=== PATIENT | male | born 1970 | race Caucasian/White ===

== ENCOUNTER 2016-07-03 09:39 | Emergency (ER) | payer MEDICAID ==
[2016-07-03 09:56] VITALS: BP 127/69
--- NOTE | 2016-07-03 10:40 | EDM.PDOC ---
[id number] 4d LEFT WRIST AND HAND DOES CHEMO Time Seen by Provider: 07/03/16 10:15 Source: Reports: Patient History Limitations: Reports: No limitations - History of Present Illness INITIAL COMMENTS - FREE TEXT/NARRATIVE: 46-year-old male bumped the back of his left arm and hand several days ago and now has some pain radiating from the back of his hand up his forearm and some redness and localized tenderness. No fevers or chills. He is treated for cancer but has not had an IV in the arm for over a month. Severity: mild Pain/Injury Location: Reports: upper extremity, left Associated Symptoms: Reports: other. Denies: nausea/vomiting, shortness of breath Allergies/ADRs: Allergies No Known Allergies Allergy (Verified 07/03/16 10:13) Home Medications: Ambulatory Orders carBAMazepine [Carbatrol] 300 mg PO BID 11/19/15 [Confirmed 07/03/16] Albuterol Sulfate [Proair Hfa] 8.5 gm IH ASDIRECTED PRN 04/04/16 [Confirmed ] Dexamethasone 4 mg PO DAILY 04/04/16 [Confirmed 07/03/16] Hydrocodone/Acetaminophen [[place] 5-325] 1 tab PO Q6H PRN 04/04/16 [Confirmed ] Mometasone/Formoterol [Dulera 200-5 MCG] 2 puff IH BIDRT 04/04/16 [Confirmed ] Morphine [MS Contin] 30 mg PO BID 04/04/16 [Confirmed 07/03/16] Pantoprazole [Protonix] 40 mg PO BID #30 tab.cr 04/05/16 [Confirmed 07/03/16] Sulfamethoxazole/Trimethoprim [Sulfamethoxazole-Tmp Ds Tablet] 1 tab PO BID [Confirmed 07/03/16] Past Medical History Respiratory History: Reports: Other (see below) Other Respiratory History: Lung cancer Gastrointestinal History: Reports: Other (see below) Other Gastrointestinal History: esophageal bleed Musculoskeletal History: Reports: Fracture Neurological History: Reports: Concussion, Seizure Oncologic (Cancer) History: Reports: Lung Other Oncologic History: diag-March 02 2016 - Infectious Disease History Infectious Disease History: Reports: None - Past Surgical History Respiratory Surgical History: Reports: Lung Biopsies GI Surgical History: Reports: EGD Musculoskeletal Surgical History: Reports: Arthroscopic knee Social & Family History - Tobacco Use Smoking Status *Q: Former Smoker Years of Tobacco use: 35 Packs/Tins Daily: 1 - Caffeine Use Caffeine Use: Reports: Coffee, Soda - Alcohol Use Days Per Week of Alcohol Use: 2 Number of Drinks Per Day: 15 Total Drinks Per Week: 30 - Recreational Drug Use Recreational Drug Use: No Review of Systems - Review of Systems Review Of Systems: See Below (No fevers or chills) Constitutional: Denies: fever Mouth/Throat: Denies: bleeding Respiratory: Denies: Shortness of Breath Cardiovascular: Denies: chest pain GI/Abdominal: Denies: Abdominal pain Skin: Reports: erythema Neurological: Denies: Headache Trauma Exam - Physical Exam Exam: See Below Exam Limited By: No limitations General Appearance: Reports: alert, no apparent distress Head: Reports: atraumatic Respiratory Exam: Reports: no respiratory distress Extremities: Reports: other (Patient has 2 small areas of erythema and slight swelling with tenderness to palpation on the dorsal aspect of the hand) Neurologic: Reports: no motor/sensory deficits Course - Vital Signs Last Recorded V/S: Last Vital Signs Temp 98.6 F 07/03/16 10:12 Pulse 79 07/03/16 10:12 Resp 15 07/03/16 10:12 BP 127/69 07/03/16 10:12 Pulse Ox 95 07/03/16 10:12 - Re-Assessments/Exams Free Text/Narrative Re-Assessment/Exam: 07/03/16 10:38 This patient has a localized area of superficial thrombophlebitis of the left hand. He'll be treated with anti-inflammatories, cephalexin, and can recheck next week if not improving. Departure - Departure Time of Disposition: 10:53 Disposition: Home, Self-Care 01 Condition: good Clinical Impression: Superficl phlebitis arm Instructions: Edema Referrals: Aubrey Jones PA [Primary Care Provider] - Forms: ED Department Discharge Care Plan Goals: Take naproxen twice daily, antibiotics as directed and increase activity with left arm as tolerated. Recheck Wednesday or Wednesday next week if not significantly improving. Return sooner if worsening or concerns.
== END 2016-07-03 10:53 | disposition home or self-care (01) ==
LOC: JP.ED 09:39
DX: I80.8 Phlebitis and thrombophlebitis of other sites (principal); Z85.118 Personal history of other malignant neoplasm of bronchus and lung; Z79.899 Other long term (current) drug therapy; Z87.891 Personal history of nicotine dependence; Z98.890 Other specified postprocedural states
CPT/HCPCS: 99283

== ENCOUNTER 2019-03-31 06:51 | Day surgery (SDC) | payer MEDICAID ==
[2019-03-31] MEDS ORDERED: Bupivacaine 0.5% 50 ML MDV ONE (07:26)
[2019-03-31] MEDS ORDERED: Lidocaine 2% Jelly 30 ML Tube ONE (07:26)
[2019-03-31] MEDS ORDERED: Lidocaine 1% with EPINEPHrine 1:100,000 50 ML MDV ONE (07:26)
[2019-03-31] MEDS ORDERED: Propofol 200 MG/20 ML SDV ONE ×2 (07:33→08:57)
[2019-03-31] MEDS ORDERED: fentaNYL 100 MCG/2 ML SDV ONE (07:33)
[2019-03-31] MEDS ORDERED: Midazolam 1 MG/ML 2 ML SDV ONE (07:33)
[2019-03-31] MEDS ORDERED: metroNIDAZOLE/Normal Saline 500 MG in Premix Bag 1 BAG IV ONE (08:00)
[2019-03-31] MEDS ORDERED: ceFAZolin 2 GM in Sodium Chloride 0.9% 50 ML IV ONE (08:00)
[2019-03-31] MEDS ORDERED: Sodium Chloride 0.9% 1,000 ML IV SCH (08:00)
[2019-03-31 10:27] VITALS: BP 111/55; PULSE 77
--- NOTE | 2019-03-31 11:24 | OR ---
DATE OF PROCEDURE: 03/31/2019 SURGEON: Phuc Car MD PROCEDURES: 1. Excision of internal and external hemorrhoids. 2. Banding of hemorrhoids. COMPLICATIONS: None. PLUSH DRESSER: None. PREOPERATIVE DIAGNOSIS: Painful hemorrhoids. POSTOPERATIVE DIAGNOSIS: Painful hemorrhoids. See operative note for further details. RISKS: Risks, benefits, alternatives, and limitations including, but not limited to infection, bleeding, requirement for reoperation, chronic pain, bleeding, and other risks not listed here were explained to the patient, and he wished to proceed. PROCEDURE IN DETAIL: The patient was placed in a prone position. The large internal combined with external hemorrhoid was identified at approximately the 3 o'clock position. This was anesthetized with lidocaine and then excised in a abby-type fashion. This was then closed with chromic suture in a running fashion. At the approximate 9 o'clock position, there was an internal hemorrhoid not in conjunction with an abnormal external hemorrhoid. This was banded x1. Lidocaine gel was applied. There was no bleeding at the end of the procedure. Gel-Foam was also used. Phuc Car MD /[id number]
== END 2019-03-31 10:39 | disposition home or self-care (01) ==
LOC: JP.SDS 06:51
PROVIDERS: ATTEND Surgery
DX: K64.8 Other hemorrhoids (principal); K64.4 Residual hemorrhoidal skin tags; J44.9 Chronic obstructive pulmonary disease, unspecified
CPT/HCPCS: 46260; J0690; J2250; J2704; J3010; J3490; J7030; J7050

== ENCOUNTER 2021-02-25 10:05 | Emergency (ER) | payer OTHER ==
[2021-02-25 11:15] VITALS: BP 116/60; PULSE 99
--- NOTE | 2021-02-25 11:47 | EDM.PDOC ---
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 No cough or fever. No orthopnea. No calf pain or LE edema. No known exposures. No pain with breathing. No hemoptysis. Onset: Today, Sudden Onset Date: 02/25/21 Duration: Hour(s):, Constant Location: Reports: Chest Quality: Reports: Other (no pain) Severity: Mild Improves with: Reports: Rest Worsens with: Reports: Movement (exertion) Context: Reports: Other (See HPI) Associated Symptoms: Reports: Shortness of Breath. Denies: Chest Pain, Cough, Diaphoresis, Fever/Chills Treatments [employer] SALES [employer]ER: Reports: Other (see below) (none) Back Pain Score (Numeric/FACES): 4 - Related Data Allergies Allergy/AdvReac Type Severity Reaction Status Date / Time No Known Allergies Allergy Verified 02/25/21 11:00 Home Meds: Home Meds carBAMazepine [Carbatrol] 300 mg PO BID 11/19/15 [History] Albuterol/Ipratropium [Combivent Respimat] 1 puff IH QID PRN 03/20/19 [History] Aspirin [Halfprin] 81 mg PO DAILY 03/20/19 [History] Gabapentin [Neurontin] 300 mg PO QID PRN 03/20/19 [History] Nitroglycerin [Nitrostat] 0.4 mg SL ASDIRECTED 03/20/19 [History] Pantoprazole [Protonix] 40 mg PO DAILY 03/31/19 [History] LORazepam [Ativan] 0.5 mg PO TID PRN #16 tab 02/25/21 [Rx] Past Medical History HEENT History: Reports: Hard of Hearing, Impaired Vision Other HEENT History: due to cancer brain on the right Respiratory History: Reports: COPD, Other (See Below) Other Respiratory History: history of small cell lung cancer left lung, appox 3 years ago Gastrointestinal History: Reports: Other (See Below) Other Gastrointestinal History: esophageal bleed Musculoskeletal History: Reports: Fracture Neurological History: Reports: Concussion, Seizure Oncologic (Cancer) History: Reports: Lung Other Oncologic History: diag-March 02 2016 - Infectious Disease History Infectious Disease History: Reports: None - Past Surgical History HEENT Surgical History: Reports: Other (See Below) Other HEENT Surgeries/Procedures: biopsy Respiratory Surgical History: Reports: Lung Biopsies GI Surgical History: Reports: EGD Musculoskeletal Surgical History: Reports: Arthroscopic Knee Social & Family History - Family History Family Medical History: No Pertinent Family History - Tobacco Use Tobacco Use Status *Q: Former Tobacco User Years of Tobacco use: 30 Packs/Tins Daily: 1.5 Used Tobacco, but Quit: Yes Month/Year Tobacco Last Used: 2015 - Caffeine Use Caffeine Use: Reports: Soda Other Caffeine Use: 6 cans pop per day - Recreational Drug Use Recreational Drug Use: No ED ROS GENERAL - Review of Systems Review Of Systems: See Below Constitutional: Reports: No Symptoms HEENT: Reports: No Symptoms Respiratory: Reports: Shortness of Breath. Denies: Wheezing, Pleuritic Chest P ain, Cough, Sputum, Hemoptysis Cardiovascular: Reports: Dyspnea on Exertion. Denies: Chest Pain, Edema Endocrine: Reports: No Symptoms GI/Abdominal: Reports: No Symptoms : Reports: No Symptoms Musculoskeletal: Reports: No Symptoms Skin: Reports: No Symptoms Neurological: Reports: No Symptoms ED EXAM, GENERAL - Physical Exam Exam: See Below Exam Limited By: No Limitations General Appearance: Alert, WD/WN, No Apparent Distress Eye Exam: Bilateral Eye: Normal Inspection Ears: Normal External Exam, Normal Canal, Hearing Grossly Normal Ear Exam: Bilateral Ear: Auricle Normal, Canal Normal Nose: Normal Inspection, No Blood Throat/Mouth: Normal Inspection, Normal Lips, Normal Oropharynx, Normal Voice, No Airway Compromise Head: Atraumatic, Normocephalic Neck: Normal Inspection Respiratory/Chest: No Respiratory Distress, Lungs Clear, Normal Breath Sounds, No Accessory Muscle Use Cardiovascular: Regular Rate, Rhythm, No Edema GI/Abdominal: Normal Bowel Sounds, Soft, Non-Tender, No Distention Back Exam: Normal Inspection. No: CVA Tenderness (R), CVA Tenderness (L) Extremities: Normal Inspection, Normal Range of Motion, Non-Tender, No Pedal Edema, Normal Capillary Refill. No: Pedal Edema, Vinicius's Sign Neurological: Alert, Oriented, CN II-XII Intact, Normal Cognition, No Motor/Sensory Deficits Psychiatric: Normal Affect, Normal Mood Skin Exam: Warm, Dry, Intact, Normal Color, No Rash Course - Vital Signs Last Recorded V/S: Last Vital Signs Temp 36.6 C 02/25/21 11:03 Pulse 99 02/25/21 11:03 Resp 20 02/25/21 11:03 BP 116/60 02/25/21 11:03 Pulse Ox 99 02/25/21 11:03 - Orders/Labs/Meds Labs: Laboratory Tests 02/25/21 02/25/21 02/25/21 Range/Units 11:00 11:45 11:48 WBC 10.8 (4.5-11.0) K/uL RBC 4.57 (4.30-5.90) M/uL Hgb 14.2 (12.0-15.0) g/dL Hct 41.6 (40.0-54.0) % MCV 91 (80-98) fL MCH 31 (27-31) pg MCHC 34 (32-36) % Plt Count 173 (150-400) K/uL D-Dimer, Quantitative 569.00 H (0.0-500.0) ng/mL SARS CoV-2 RNA Rapid EDELMIRA Negative Meds: Medications Discontinued Medications Generic Name Dose Route Start Last Admin Trade Name Freq PRN Reason Stop Dose Admin Lorazepam 0.5 mg 02/25/21 14:05 02/25/21 14:12 Lorazepam 0.5 Mg Tab PO 02/25/21 14:06 0.5 mg ONETIME ONE Administration - Radiology Interpretation Free Text/Narrative:: CXR- IMPRESSION: Unremarkable chest. Dictated by: Usman Townsend MD @ 02/25/2021 14:00:47 Departure - Departure Time of Disposition: 14:35 Disposition: Home, Self-Care 01 Condition: Good Clinical Impression: Shortness of breath - Discharge Information *PRESCRIPTION DRUG MONITORING PROGRAM REVIEWED*: Yes *COPY OF PRESCRIPTION DRUG MONITORING REPORT IN PATIENT SYED: Yes Prescriptions: LORazepam [Ativan] 0.5 mg PO TID PRN #16 tab PRN Reason: Shortness Of Breath Referrals: Tammie Bernardo DO [Primary Care Provider] - Forms: ED Department Discharge Additional Instructions: Use lorazepam as needed/directed for shortness of breath. Follow up with oncology for recheck after your PET scan results are in. Sepsis Event Note (ED) - Evaluation Sepsis Screening Result: No Definite Risk - Focused Exam Vital Signs: Vital Signs Temp Pulse Resp BP Pulse Ox 02/25/21 11:03 36.6 C 99 20 116/60 99
--- NOTE | 2021-02-25 14:02 | CRLCR ---
For Patients: As a result of the Century Cures Act, medical imaging exams and procedure reports are released immediately into your electronic medical record. You may view this report before your referring provider. If you have questions, please contact your health care provider. INDICATION: SOB, hx of lung CA TECHNIQUE: Chest 2 views. COMPARISON: None. FINDINGS: Cardiovascular and mediastinum: Heart size and vasculature are normal in caliber and appearance. Mediastinum is within normal limits. Lungs and pleural spaces: Lungs are clear. No sign of infiltrate or mass. No sign of pleural effusion. No pneumothorax. Bones and soft tissues: No significant findings. IMPRESSION: Unremarkable chest. Dictated by: Usman Townsend MD @ 02/25/2021 14:00:47 (Electronically Signed)
[2021-02-25] MEDS ORDERED: LORazepam 0.5 MG Tab PO ONE (14:05)
== END 2021-02-25 14:40 | disposition home or self-care (01) ==
LOC: JP.ED 10:05
DX: R06.02 Shortness of breath (principal); J44.9 Chronic obstructive pulmonary disease, unspecified; Z79.82 Long term (current) use of aspirin; Z79.899 Other long term (current) drug therapy; Z87.891 Personal history of nicotine dependence; Z20.822 Contact with and (suspected) exposure to COVID-19
CPT/HCPCS: 36415; 71046; 85027; 85379; 87635; 99285; A9270; U0002

== ENCOUNTER 2021-04-25 09:32 | Day surgery (SDC) | payer MEDICAID, OTHER ==
[2021-04-25] MEDS ORDERED: fentaNYL 100 MCG/2 ML SDV ONE (10:03)
[2021-04-25] MEDS ORDERED: Propofol 200 MG/20 ML SDV ONE (10:03)
[2021-04-25] MEDS ORDERED: Midazolam 1 MG/ML 2 ML SDV ONE (10:03)
[2021-04-25] MEDS ORDERED: Sodium Chloride 0.9% 1,000 ML IV SCH (10:15)
[2021-04-25] MEDS ORDERED: Bupivacaine 0.5% 50 ML MDV ONE (12:57)
[2021-04-25] MEDS ORDERED: Lidocaine 1% with EPINEPHrine 1:100,000 50 ML MDV ONE (12:57)
[2021-04-25 15:00] VITALS: BP 111/70; PULSE 84
== END 2021-04-25 15:01 | disposition home or self-care (01) ==
LOC: JP.SDS 09:32
PROVIDERS: ATTEND Surgery
DX: C34.90 Malignant neoplasm of unspecified part of unspecified bronchus or lung (principal); C79.31 Secondary malignant neoplasm of brain; J44.9 Chronic obstructive pulmonary disease, unspecified
CPT/HCPCS: 36561; 71045; 77001; C1788; C1894; J1642; J2250; J2704; J3010; J3490; J7030